=== PATIENT | female | born 1940 | race Caucasian/White ===

== ENCOUNTER → 2019-04-11 | Outpatient (CLI) | payer MEDICARE, OTHER ==
[~2019-04-11] MED LIST: ASPIRIN325 PO; ATIVAN0.5 MG PO; CLONAZEPAM PO; CYMBALTA20 MG PO; HYDROCODON-ACE1 EAC5 PO; IBUPROFEN 800800 M1 PO; KEFLEX500 MG PO; LIPITOR 20 MG T20 M1 PO; MIRALAX17 GM PO; MOBIC7.5 MG PO; NORCO 10-325 T1 EACH PO; OXYBUTYNIN 5 MG5 M2 PO; REMERON15 MG PO; RESTORIL15 MG PO; TESSALON PERLE100 MG PO; ZANAFLEX4 MG PO
--- NOTE | 2019-04-15 14:07 | PATH ---
[address] [address] PATHOLOGY RPT PROCEDURE Name: REJINGA Room: [facility] Foster#: [id number] Admission: 04/11/19 Date of : 40 Discharge: Report #: [id number] Path Case #: [id number] [facility] Accession Number: [id number] . 01 Material submitted: . chest - LEFT CHEST WALL. Modifiers: left, wall . 01 Clinical history: . Lump 0.6 x 0.59 x 0.43 cm. . 02 Diagnosis: Left chest wall, image-guided core biopsies: - Fat necrosis with fibrosis and minute fragment of benign skin, negative for malignancy. (See comment) . (GABY:nader; 04/14/2019) QL 04/14/2019 1017 Local . 02 Comment: The history of a prior left simple mastectomy which showed high grade ductal carcinoma and separate focus of lobular carcinoma is noted ([id number]). The current left chest wall biopsy is benign and shows no residual breast epithelial tissues. . Reviewed with Dr. Matt Slater, who agrees with the diagnosis. . (GABY:nader; 04/14/2019) . 02 Electronically signed: . Erik Lucas MD, Pathologist NPI- [id number] . 01 Gross description: . Received in formalin labeled "Nga Mendoza, left chest wall" are multiple minute fragments of mendoza-white soft tissue measuring in aggregate 1.0 x 0.5 x 0.1 cm. The specimen is submitted entirely in cassettes A1-A3. ([facility]; 04/12/2019) [facility] 04/12/2019 0929 Local . 02 Pathologist provided ICD-10: M79.89, Z85.3 . 02 CPT . 077596 Specimen Comment: A courtesy copy of this report has been sent to [phone], [phone] Specimen Comment: [facility] [place] [address] PATHOLOGY RPT PROCEDURE Name: NGA MENDOZA [id number]: 04/11/19 Date of : 40 Discharge: Report #: [id number] Path Case #: [id number] Specimen Comment: Report sent to and Performed at: [address], [place], [place] [id number] MD Juan Shore MD Phone: [phone] Performed at: 02 [facility] Jose Chen, [place] [id number] MD Erik Lucas MD Phone: [phone]
== END | disposition home or self-care (01) ==
LOC: M.ULTRA 07:18
DX: M79.89 Other specified soft tissue disorders (principal); Z85.3 Personal history of malignant neoplasm of breast; F41.9 Anxiety disorder, unspecified; Z98.890 Other specified postprocedural states; Z79.899 Other long term (current) drug therapy; Z91.040 Latex allergy status; Z88.0 Allergy status to penicillin; Z88.8 Allergy status to other drugs, medicaments and biological substances; Z79.82 Long term (current) use of aspirin

== ENCOUNTER → 2019-12-19 | Outpatient (CLI) | payer MEDICARE, OTHER | LOC: M.MRI 12:51 | DX: I67.82 Cerebral ischemia (principal); G30.1 Alzheimer's disease with late onset; F02.80 Dementia in other diseases classified elsewhere, unspecified severity, without behavioral disturbance, psychotic disturbance, mood disturbance, and anxiety; R90.82 White matter disease, unspecified ==

== ENCOUNTER → 2020-04-15 | Outpatient (CLI) | payer MEDICARE, OTHER | LOC: M.RAD 10:44 | PROVIDERS: ATTEND Internal Medicine Hematology & Oncology | DX: Z13.820 Encounter for screening for osteoporosis (principal) ==

== ENCOUNTER → 2020-10-04 | Outpatient (CLI) | payer MEDICARE, OTHER | LOC: M.RAD 09:41 | PROVIDERS: ATTEND Internal Medicine Hematology & Oncology | DX: Z12.31 Encounter for screening mammogram for malignant neoplasm of breast (principal); N64.89 Other specified disorders of breast ==